=== PATIENT | male | born 1990 | race Caucasian/White ===

== ENCOUNTER 2016-11-25 22:40 | Inpatient (IN) | payer BC ==
[2016-11-25] MEDS ORDERED: HYDROmorphone 2 MG/ML SDV IVPUSH ONE (23:07)
[2016-11-25] MEDS ORDERED: Ondansetron 4 MG Tab.DIS PO ONE (23:08)
--- NOTE | 2016-11-25 23:14 | EDM.PDOC ---
ED HPI GENERAL MEDICAL PROBLEM - General Chief Complaint: Abdominal Pain Stated Complaint: ABD PAIN Time Seen by Provider: 11/25/16 22:55 Source of Information: Reports: Patient History Limitations: Reports: No Limitations - History of Present Illness INITIAL COMMENTS - FREE TEXT/NARRATIVE: 26 yo male awoke today with mild RLQ abdominal pain that has progressed as the day has elapsed. No fever. BM's normal. No hx of abdominal surgeries. No urinary sx's. Pain not changed a lot by eating. No hx of the same. Has nausea now tonight, no vomiting yet. Movement, coughing, or pressing on the area increases his pain. Drove himself to the ER [email or web address]. Has no local doctor, is a student at the [email or web address]. Onset: Today Onset Date: 11/25/16 Onset Time: 05:00 Duration: Hour(s):, Getting Worse Location: Reports: Abdomen Quality: Reports: Ache Severity: Severe Improves with: Reports: None Worsens with: Reports: Other (time, pressing on area. ) Context: Reports: Other (unknown) Associated Symptoms: Reports: Nausea/Vomiting (no vomiting ). Denies: Fever/ Chills Treatments SUBACUTE NURSE: Reports: Other (see below) (none) - Related Data Allergies Allergy/AdvReac Type Severity Reaction Status Date / Time No Known Allergies Allergy Verified 11/25/16 22:56 Home Meds: Home Meds FLUoxetine HCl [Prozac] 40 mg PO DAILY 11/25/16 [History] ED ROS GENERAL - Review of Systems Review Of Systems: See Below Constitutional: Reports: No Symptoms, Decreased Appetite (decreased since supper time only.). Denies: Fever, Chills, Weight Loss HEENT: Reports: No Symptoms Respiratory: Reports: No Symptoms Cardiovascular: Reports: No Symptoms GI/Abdominal: Reports: Abdominal Pain, Decreased Appetite, Nausea. Denies: Black Stool, Bloody Stool, Constipation, Diarrhea, Difficulty Swallowing, Distension, Flatus, Hematemesis, Hematochezia, Mucous in Stool, Stool Incontinence, Vomiting : Reports: Frequency (voiding slightly more often than normal. ) Musculoskeletal: Reports: No Symptoms Skin: Reports: No Symptoms Neurological: Reports: No Symptoms Psychiatric: Reports: No Symptoms ED EXAM, GI/ABD - Physical Exam Exam: See Below Exam Limited By: No Limitations General Appearance: Alert, WD/WN, No Apparent Distress, Obese Eyes: Bilateral: Normal Appearance Ears: Normal External Exam, Normal Canal, Hearing Grossly Normal Nose: Normal Inspection, Normal Mucosa, No Blood Throat/Mouth: Normal Inspection, Normal Lips, Normal Oropharynx, Normal Voice, No Airway Compromise Head: Atraumatic, Normocephalic Neck: Normal Inspection, Supple Respiratory/Chest: No Respiratory Distress, Lungs Clear, Normal Breath Sounds, No Accessory Muscle Use Cardiovascular: Regular Rate, Rhythm, No Edema GI/Abdominal Exam: Normal Bowel Sounds, No Distention, Guarding, Rebound, Tender (RUQ and RLQ's). No: Distended, Rigid Back Exam: Normal Inspection. No: CVA Tenderness (R), CVA Tenderness (L) Extremities: Normal Inspection, Normal Range of Motion, Non-Tender, No Pedal Edema Neurological: Alert, Oriented, CN II-XII Intact, Normal Cognition, No Motor/ Sensory Deficits Psychiatric: Normal Affect, Normal Mood Skin Exam: Warm, Dry, Intact, Normal Color, No Rash Lymphatic: No Adenopathy Course - Vital Signs Last Recorded V/S: Last Vital Signs Temp 36.6 C 11/25/16 22:40 Pulse 55 L 11/26/16 00:24 Resp 18 11/26/16 00:24 BP 133/68 11/26/16 00:24 Pulse Ox 99 11/25/16 22:40 - Orders/Labs/Meds Orders: Active Orders 24 hr Category Date Time Status Abdomen Pelvis w Cont [CT] Stat Exams 11/26/16 00:21 Taken HYDROmorphone [Dilaudid] Med 11/26/16 01:32 Once 0.5 mg IVPUSH ONETIME ONE Iopamidol [Isovue-370 (76%)] Med 11/26/16 01:00 Active 100 ml IV . DIRECTED Lactated Ringers [Ringers, Lactated] 1,000 ml Med 11/26/16 00:30 Active IV ASDIRECTED Sodium Chloride 0.9% [Saline Flush] Med 11/25/16 23:07 Active 10 ml FLUSH ASDIRECTED PRN Saline Lock Insert [OM.PC] Routine Oth 11/25/16 23:07 Ordered Medication Orders Lactated Ringer's (Ringers, Lactated) 1,000 mls @ 250 mls/hr IV ASDIRECTED [facility] Last Admin: 11/26/16 00:38 Dose: 250 mls/hr Iopamidol (Isovue-370 (76%)) 100 ml IV . DIRECTED NIGHAT Last Admin: 11/26/16 01:01 Dose: 100 ml Sodium Chloride (Saline Flush) 10 ml FLUSH ASDIRECTED PRN PRN Reason: Keep Vein Open Last Admin: 11/26/16 00:38 Dose: 10 ml Admin: 11/25/16 23:23 Dose: 10 ml Labs: Laboratory Tests 11/25/16 11/25/16 11/25/16 Range/Units 23:15 23:15 23:15 WBC 18.0 H (4.5-12.0) X10-3/uL RBC 5.34 (4.30-5.75) x10(6)uL Hgb 15.3 (11.5-15.5) g/dL Hct 44.8 (30.0-51.3) % MCV 83.8 (80-96) fL MCH 28.6 (27.7-33.6) pg MCHC 34.1 (32.2-35.4) g/dL RDW 11.8 (11.5-15.5) % Plt Count 197 (125-369) X10(3)uL Sodium 137 (135-145) mmol/L Potassium 4.0 (3.5-5.3) mmol/L Chloride 106 (100-110) mmol/L Carbon Dioxide 24 (23-29) mmol/L BUN 13 (5-20) mg/dL Creatinine 0.8 (0.6-1.3) mg/dL Est Cr Clr Drug Dosing 177.89 mL/min Estimated GFR (MDRD) > 60 (>60) BUN/Creatinine Ratio 16.3 (9-20) Glucose 100 (80-116) mg/dL Calcium 9.4 (8.6-10.2) mg/dL Total Bilirubin 0.4 (0.1-1.3) mg/dL AST 21 (5-27) IU/L ALT 20 (14-26) IU/L Alkaline Phosphatase 84 (56-112) IU/L C-Reactive Protein < 0.5 (0.0-1.0) mg/dL Total Protein 7.5 (6.0-8.0) g/dL Albumin 4.2 (3.5-5.2) g/dL Globulin 3.3 g/dL Albumin/Globulin Ratio 1.3 Urine Color (YELLOW) Urine Appearance (CLEAR) Urine pH (5.0-6.5) Ur Specific [place] (1.010-1.025) Urine Protein (NEGATIVE) mg/dL Urine Glucose (UA) (NEGATIVE) mg/dL Urine Ketones (NEGATIVE) mg/dL Urine Occult Blood (NEGATIVE) Urine Nitrite (NEGATIVE) Urine Bilirubin (NEGATIVE) Urine Urobilinogen (NEGATIVE) mg/dL Ur Leukocyte Esterase (NEGATIVE) Urine RBC (0) Urine WBC (0) Ur Squamous Epith Cells (NS,R,O) Urine Bacteria (NS) 11/26/16 Range/Units 00:05 WBC (4.5-12.0) X10-3/uL RBC (4.30-5.75) x10(6)uL Hgb (11.5-15.5) g/dL Hct (30.0-51.3) % MCV (80-96) fL MCH (27.7-33.6) pg MCHC (32.2-35.4) g/dL RDW (11.5-15.5) % Plt Count (125-369) X10(3)uL Sodium (135-145) mmol/L Potassium (3.5-5.3) mmol/L Chloride (100-110) mmol/L Carbon Dioxide (23-29) mmol/L BUN (5-20) mg/dL Creatinine (0.6-1.3) mg/dL Est Cr Clr Drug Dosing mL/min Estimated GFR (MDRD) (>60) BUN/Creatinine Ratio (9-20) Glucose (80-116) mg/dL Calcium (8.6-10.2) mg/dL Total Bilirubin (0.1-1.3) mg/dL AST (5-27) IU/L ALT (14-26) IU/L Alkaline Phosphatase (56-112) IU/L C-Reactive Protein (0.0-1.0) mg/dL Total Protein (6.0-8.0) g/dL Albumin (3.5-5.2) g/dL Globulin g/dL Albumin/Globulin Ratio Urine Color Yellow (YELLOW) Urine Appearance Clear (CLEAR) Urine pH 5.0 (5.0-6.5) Ur Specific [place] 1.015 (1.010-1.025) Urine Protein Negative (NEGATIVE) mg/dL Urine Glucose (UA) Normal (NEGATIVE) mg/dL Urine Ketones Negative (NEGATIVE) mg/dL Urine Occult Blood Negative (NEGATIVE) Urine Nitrite Negative (NEGATIVE) Urine Bilirubin Negative (NEGATIVE) Urine Urobilinogen Normal (NEGATIVE) mg/dL Ur Leukocyte Esterase Negative (NEGATIVE) Urine RBC 0-5 (0) Urine WBC 0-5 (0) Ur Squamous Epith Cells Occasional (NS,R,O) Urine Bacteria Rare H (NS) Meds: Medications Generic Name Dose Route Start Last Admin Trade Name Freq PRN Reason Stop Dose Admin Lactated Ringer's 1,000 mls @ 250 mls/hr 11/26/16 00:30 11/26/16 00:38 Ringers, Lactated IV 250 mls/hr ASDIRECTED NIGHAT Administration Iopamidol 100 ml 11/26/16 01:00 11/26/16 01:01 Isovue-370 (76%) IV 100 ml . DIRECTED NIGHAT Administration Sodium Chloride 10 ml 11/25/16 23:07 11/26/16 00:38 Saline Flush FLUSH 10 ml ASDIRECTED PRN Administration Keep Vein Open Discontinued Medications Generic Name Dose Route Start Last Admin Trade Name Freq PRN Reason Stop Dose Admin Hydromorphone HCl 0.5 mg 11/25/16 23:07 11/25/16 23:16 Dilaudid IVPUSH 11/25/16 23:08 0.5 mg ONETIME ONE Administration Hydromorphone HCl 0.5 mg 11/26/16 00:20 11/26/16 00:36 Dilaudid IVPUSH 11/26/16 00:21 0.5 mg ONETIME ONE Administration Ondansetron HCl 4 mg 11/25/16 23:08 11/25/16 23:16 Zofran Odt PO 11/25/16 23:09 4 mg ONETIME ONE Administration Departure - Departure Time of Disposition: 01:35 Disposition: Admitted As Inpatient 67 Condition: Fair Clinical Impression: Acute appendicitis Qualifiers: Acute appendicitis type: with localized peritonitis Qualified Code(s): K35.3 - Acute appendicitis with localized peritonitis - Discharge Information Forms: ED Department Discharge - My Orders Last 24 Hours: My Active Orders 11/25/16 23:07 Sodium Chloride 0.9% [Saline Flush] 10 ml FLUSH ASDIRECTED PRN Saline Lock Insert [OM.PC] Routine 11/26/16 00:21 Abdomen Pelvis w Cont [CT] Stat 11/26/16 00:30 Lactated Ringers [Ringers, Lactated] 1,000 ml IV ASDIRECTED 11/26/16 01:00 Iopamidol [Isovue-370 (76%)] 100 ml IV . DIRECTED 11/26/16 01:32 HYDROmorphone [Dilaudid] 0.5 mg IVPUSH ONETIME ONE - Assessment/Plan Last 24 Hours: My Active Orders 11/25/16 23:07 Sodium Chloride 0.9% [Saline Flush] 10 ml FLUSH ASDIRECTED PRN Saline Lock Insert [OM.PC] Routine 11/26/16 00:21 Abdomen Pelvis w Cont [CT] Stat 11/26/16 00:30 Lactated Ringers [Ringers, Lactated] 1,000 ml IV ASDIRECTED 11/26/16 01:00 Iopamidol [Isovue-370 (76%)] 100 ml IV . DIRECTED 11/26/16 01:32 HYDROmorphone [Dilaudid] 0.5 mg IVPUSH ONETIME ONE
[2016-11-25] MEDS: Sodium Chloride 0.9% 10 ML Syringe FLUSH PRN (23:23)
[2016-11-26] MEDS ORDERED: HYDROmorphone 2 MG/ML SDV IVPUSH ONE ×2 (00:20→01:32)
[2016-11-26] MEDS ORDERED: Lactated Ringers 1,000 ML IV SCH ×2 (00:30→01:45)
[2016-11-26] MEDS: Sodium Chloride 0.9% 10 ML Syringe FLUSH PRN (00:38)
[2016-11-26] MEDS ORDERED: Iopamidol 755 Mg/ML 100 ML Bottle IV SCH (01:00)
[2016-11-26] MEDS ORDERED: Ondansetron 4 MG/2 ML SDV IV PRN (01:38)
[2016-11-26] MEDS ORDERED: cefOXitin 1 GM in Premix Bag 1 BAG IV ONE ×4 (02:00)
[2016-11-26] MEDS: HYDROmorphone 2 MG/ML SDV IVPUSH PRN ×4 (03:49→13:47)
--- NOTE | 2016-11-26 06:58 | PCM.HP ---
H&P History of Present Illness - General Date of Service: 11/26/16 Admit Problem/Dx: Admission Diagnosis/Problem Admission Diagnosis/Problem Acute appendicitis Source of Information: Patient - History of Present Illness Initial Comments - Free Text/Narative: Pt developed abd pain around the belly button. This started early in the am. It got progressively worse as the day progressed. Then settled in the rlq. +/- on the anorexia. Last meal was at 1600 hrs yesterday. On tucker in the ED, elevated wbc, acute appendicitis on CT scan. Only med hx is depression. Right Lower Abdomen Pain Score (Numeric/FACES): 5 - Related Data Allergies/Adverse Reactions: Allergies Allergy/AdvReac Type Severity Reaction Status Date / Time No Known Allergies Allergy Verified 11/25/16 22:56 Home Medications: Home Meds FLUoxetine HCl [Prozac] 40 mg PO DAILY 11/25/16 [History] Past Medical History Psychiatric History: Reports: Depression - Past Surgical History Musculoskeletal Surgical History: Reports: Ganglion Cyst Social & Family History - Family History Family Medical History: Noncontributory - Tobacco Use Smoking Status *Q: Former Smoker Years of Tobacco use: 1 Used Tobacco, but Quit: Yes Month Tobacco Last Used: December Second Hand Smoke Exposure: No - Caffeine Use Caffeine Use: Reports: None - Recreational Drug Use Recreational Drug Use: Yes Recreational Drug Type: Reports: Marijuana/Hashish Recreational Drug Use Frequency: Rarely H&P Review of Systems - Review of Systems: Review Of Systems: See Below General: Reports: Decreased Appetite HEENT: Reports: Ear Pain Pulmonary: Reports: No Symptoms Cardiovascular: Reports: No Symptoms Gastrointestinal: Reports: Abdominal Pain, Anorexia Genitourinary: Reports: Other Musculoskeletal: Reports: No Symptoms Skin: Reports: No Symptoms Psychiatric: Reports: No Symptoms Neurological: Reports: No Symptoms Exam - Exam Exam: See Below - Vital Signs Vital Signs: Last Vital Signs Temp 37.1 C 11/26/16 01:40 Pulse 60 11/26/16 01:40 Resp 18 11/26/16 01:40 BP 135/67 11/26/16 01:40 Pulse Ox 98 11/26/16 01:40 Weight: 140.84 kg - Exam General: Alert, Oriented, Cooperative HEENT: Hearing Intact Lungs: Clear to Auscultation, Normal Respiratory Effort Cardiovascular: Regular Rate, Regular Rhythm GI/Abdominal Exam: Normal Bowel Sounds, Soft, Tender Rectal (Males) Exam: Deferred Extremities: Normal Inspection Neuro Extensive - Mental Status: Alert, Normal Mood/Affect, Normal Cognition - Patient Data Result Diagrams: 11/25/16 23:15 11/25/16 23:15 *Q Meaningful Use (ADM) - VTE *Q VTE Criteria *Q: - Stroke *Q Stroke Criteria *Q: - AMI *Q AMI Criteria *Q: - Problem List (1) Acute appendicitis SNOMED Code(s): 85132598 ICD Code: K35.80 - UNSPECIFIED ACUTE APPENDICITIS Status: Acute Current Visit: Yes Qualifiers: Acute appendicitis type: with localized peritonitis Qualified Code(s): K35.3 - Acute appendicitis with localized peritonitis Problem List Initiated/Reviewed/Updated: Yes Orders Last 24hrs: Active Orders 24 hr Category Date Time Status Patient to Empty Bladder [RC] ASDIRECTED Care 11/26/16 06:50 Ordered Vaccines to be Administered [RC] PER UNIT ROUTINE Care 11/26/16 02:36 Active Verify Patient Consent Obtain [RC] ASDIRECTED Care 11/26/16 06:50 Ordered Diphth,Pertuss(Acell),Tet Vac [Adacel] Med 11/26/16 09:00 Once 0.5 ml IM .ONCE ONE cefOXitin [Mefoxin] 2 gm Med 11/26/16 10:00 Active Sodium Chloride 0.9% [Normal Saline] 100 ml IV Q8H Sequential Compression Device [OM.PC] Routine Oth 11/26/16 06:50 Ordered Medication Orders Diphtheria/Tetanus/Acell Pertussis (Adacel) 0.5 ml IM .ONCE ONE Stop: 11/26/16 09:01 Hydromorphone HCl (Dilaudid) 0.5 mg IVPUSH Q2H PRN PRN Reason: Pain (severe 7-10) Last Admin: 11/26/16 05:54 Dose: 0.5 mg Admin: 11/26/16 03:49 Dose: 0.5 mg Lactated Ringer's (Ringers, Lactated) 1,000 mls @ 250 mls/hr IV ASDIRECTED [facility] Last Admin: 11/26/16 00:38 Dose: 250 mls/hr Lactated Ringer's (Ringers, Lactated) 1,000 mls @ 125 mls/hr IV ASDIRECTED [facility] Last Admin: 11/26/16 06:00 Dose: 125 mls/hr Cefoxitin Sodium 2 gm/ Sodium (Chloride) 100 mls @ 200 mls/hr IV Q8H NIGHAT Iopamidol (Isovue-370 (76%)) 100 ml IV . DIRECTED NIGHAT Last Admin: 11/26/16 01:01 Dose: 100 ml Ondansetron HCl (Zofran) 4 mg IV Q6H PRN PRN Reason: Nausea/Vomiting Last Admin: 11/26/16 06:01 Dose: 4 mg Sodium Chloride (Saline Flush) 10 ml FLUSH ASDIRECTED PRN PRN Reason: Keep Vein Open Last Admin: 11/26/16 00:38 Dose: 10 ml Admin: 11/25/16 23:23 Dose: 10 ml Assessment/Plan Comment:: lap appendectomy. the procedure and risks were explained to the pt to include bleeding, infection , injury to bowel, bladder and blood vessel as well as the need to open. expressed understanding and asks us to proceed.
[2016-11-26] MEDS ORDERED: Rocuronium 50 MG/5 ML Vial IV ONE (08:00)
[2016-11-26] MEDS ORDERED: Dexamethasone 4 MG/ML 5 ML MDV IVPUSH ONE (08:00)
[2016-11-26] MEDS ORDERED: ePHEDrine 50 MG/ML SDV IV ONE (08:00)
[2016-11-26] MEDS ORDERED: Lactated Ringers 1,000 ML IV ONE (08:00)
[2016-11-26] MEDS ORDERED: diphenhydrAMINE 50 MG/ML SDV IV ONE (08:00)
[2016-11-26] MEDS ORDERED: Midazolam 1 MG/ML 2 ML SDV IV ONE (08:00)
[2016-11-26] MEDS ORDERED: cefOXitin 1 GM Vial IV ONE (08:00)
[2016-11-26] MEDS ORDERED: Ketorolac 30 MG/ML SDV IVPUSH ONE (08:00)
[2016-11-26] MEDS ORDERED: Propofol 200 MG/20 ML SDV IV ONE (08:00)
[2016-11-26] MEDS ORDERED: fentaNYL 100 MCG/2 ML SDV IV ONE (08:00)
[2016-11-26] MEDS ORDERED: Succinylcholine 200 MG/10 ML MDV IV ONE (08:00)
[2016-11-26] MEDS ORDERED: Ondansetron 4 MG/2 ML SDV IVPUSH ONE (08:00)
[2016-11-26] MEDS ORDERED: Bupivacaine 0.5% 30 ML SDV ONE (08:30)
[2016-11-26] MEDS ORDERED: Lidocaine 1% with EPINEPHrine 1:100,000 20 ML MDV ONE (08:30)
--- NOTE | 2016-11-26 08:57 | PCM.OPNOTE ---
- General Post-Op/Procedure Note Date of Surgery/Procedure: 11/26/16 Operative Procedure(s): lap appendectomy Findings: acute appendicitis Pre Op Diagnosis: acute appendicitis Post-Op Diagnosis: Same Anesthesia Technique: General ET Tube, Local (9 ml 1 % lido with epi/0.5% buvipicaine) Primary Surgeon: You Piper Anesthesia Provider: Brittani Renteria Pathology: appendix EBL in mLs: 1 Complications: None Condition: Stable Free Text/Narrative:: Intake & Output 11/25/16 11/26/16 11/26/16 22:59 06:59 14:59 Intake Total 1138 Balance 1138 see dictation
[2016-11-26] MEDS ORDERED: Diphtheria,Pertussis(Acell),Tetanus Vaccine 0.5 ML SDV IM ONE (09:00)
[2016-11-26] MEDS ORDERED: cefOXitin 2 GM in Sodium Chloride 0.9% 100 ML IV SCH ×4 (10:00→14:00)
[2016-11-26] MEDS: Lactated Ringers 1,000 ML IV SCH ×2 (10:03→17:46)
--- NOTE | 2016-11-26 10:26 | OR ---
DATE OF OPERATION: 11/26/2016 SURGEON: You Piper MD PROCEDURE PERFORMED: Laparoscopic appendectomy. PREOPERATIVE DIAGNOSIS: Acute appendicitis. POSTOPERATIVE DIAGNOSIS: Acute appendicitis. INDICATIONS FOR PROCEDURE: This is a 26-year-old white male, who presented with approximately an 18-hour history of abdominal pain that got progressively worse and was located in the right lower quadrant. Workup in the emergency department revealed a right lower quadrant tenderness, leukocytosis, as well as a CT scan findings consistent with acute appendicitis. He was offered and accepted a laparoscopic appendectomy. INTRAOPERATIVE FINDINGS: The suppurative appendix was removed. Approximately 10 mL of a 1:1 mixture of 1% lidocaine with epinephrine 0.5% bupivacaine was used to infiltrate our trocar sites. DESCRIPTION OF PROCEDURE: After an excellent IV general anesthetic was administered, the patient was prepped and draped in usual sterile manner. Local was used to infuse the area, just below the umbilicus. An incision was made with a #10 scalpel blade. The subcu fat was divided using electrocautery. Two stay sutures of 0 Vicryl were placed on either side of the midline fascia, which was then elevated and incised. A 10.5 mm Lucila trocar was then inserted into the patient's preperitoneal space. The patient's abdomen was insufflated to 15 mmHg using carbon dioxide. Two 5 mm ports were placed, one in the right lower quadrant and one just below the midline umbilical site by infiltrating with local making a stab incision and inserting the trocars. A suppurative appendix was easily identified. A rent was made in the mesoappendix, the base of the appendix was transected with a 3.5 mm Endo-ARTHUR, and the mesoappendix was divided using the Endo-ARTHUR as well. Specimen was passed into the bag and pneumoperitoneum was released after removing our trocars, which were checked for bleeding. The fascial defect was closed with a [id number] 0 Vicryl. Tyrese were used to close the skin. Dressing was applied. Needle, sponge, and instrument counts were reported as correct. The patient was taken to recovery room in good condition having tolerated procedure well. /[id number] /MODL
[2016-11-26] MEDS ORDERED: diphenhydrAMINE 50 MG/ML SDV IVPUSH PRN (14:42)
[2016-11-26] MEDS: Morphine 2 MG/ML Syringe IVPUSH PRN ×2 (15:37→17:48)
[2016-11-26] MEDS: Ketorolac 30 MG/ML SDV IVPUSH PRN (16:40)
[2016-11-26] MEDS: cefOXitin 2 GM in Sodium Chloride 0.9% 100 ML IV SCH (20:16)
[2016-11-26] MEDS: Acetaminophen/HYDROcodone 325-5 MG Tab PO PRN (20:17)
[2016-11-27] MEDS: Acetaminophen/HYDROcodone 325-5 MG Tab PO PRN ×4 (00:53→20:35)
[2016-11-27] MEDS: Lactated Ringers 1,000 ML IV SCH (00:55)
[2016-11-27] MEDS: cefOXitin 2 GM in Sodium Chloride 0.9% 100 ML IV SCH ×4 (01:00→19:33)
[2016-11-27] MEDS: Ketorolac 30 MG/ML SDV IVPUSH PRN ×3 (02:35→19:36)
[2016-11-27] MEDS: FLUoxetine 20 MG Cap PO SCH (09:30)
--- NOTE | 2016-11-27 10:14 | PCM.SURGPN ---
- General Info Date of Service: 11/27/16 POD#: 1 Functional Status: Reports: Pain Controlled, Tolerating Diet - Review of Systems Pulmonary: Reports: No Symptoms Cardiovascular: Reports: No Symptoms Gastrointestinal: Reports: Abdominal Pain - Patient Data Vitals - Most Recent: Last Vital Signs Temp 36.8 C 11/27/16 02:37 Pulse 56 L 11/27/16 02:37 Resp 18 11/27/16 02:37 BP 116/47 L 11/27/16 02:37 Pulse Ox 98 11/27/16 02:37 Weight - Most Recent: 140.84 kg I&O - Last 24 Hours: Intake & Output 11/26/16 11/27/16 11/27/16 22:59 06:59 14:59 Intake Total 1911 480 100 Output Total 1000 1200 Balance 911 -720 100 Lab Results Last 24 Hrs: Laboratory Results - last 24 hr 11/27/16 Range/Units 06:18 WBC 14.4 H (4.5-12.0) X10-3/uL RBC 4.32 (4.30-5.75) x10(6)uL Hgb 12.8 (11.5-15.5) g/dL Hct 36.7 (30.0-51.3) % MCV 85.0 (80-96) fL MCH 29.5 (27.7-33.6) pg MCHC 34.8 (32.2-35.4) g/dL RDW 11.9 (11.5-15.5) % Plt Count 144 (125-369) X10(3)uL MPV 9.9 (7.4-10.4) fL Neut % (Auto) 76.8 (46-82) % Lymph % (Auto) 13.2 (13-37) % Coffey % (Auto) 9.7 (4-12) % Eos % (Auto) 0 L (1.0-5.0) % Baso % (Auto) 0 (0-2) % Neut # (Auto) 11.1 H (1.6-8.3) # Lymph # (Auto) 1.9 (0.6-5.0) # Coffey # (Auto) 1.4 H (0.0-1.3) # Eos # (Auto) 0.0 (0.0-0.8) # Baso # (Auto) 0.0 (0.0-0.2) # Med Orders - Current: Current Medications Hydrocodone Bitart/Acetaminophen ([place] 325-5 Mg) 2 tab PO Q4H PRN PRN Reason: Pain Last Admin: 11/27/16 00:53 Dose: 2 tab Diphenhydramine HCl (Benadryl) 25 mg IVPUSH Q8H PRN PRN Reason: Itching Last Admin: 11/26/16 16:41 Dose: 25 mg Fluoxetine HCl (Prozac) 40 mg PO DAILY [facility] Last Admin: 11/27/16 09:30 Dose: 40 mg Lactated Ringer's (Ringers, Lactated) 1,000 mls @ 150 mls/hr IV ASDIRECTED [facility] Last Admin: 11/27/16 00:55 Dose: 150 mls/hr Cefoxitin Sodium 2 gm/ Sodium (Chloride) 100 mls @ 200 mls/hr IV Q6H [facility] Last Admin: 11/27/16 09:27 Dose: 200 mls/hr Ketorolac Tromethamine (Toradol) 30 mg IVPUSH Q8H PRN PRN Reason: Pain Stop: 12/01/16 16:32 Last Admin: 11/27/16 02:35 Dose: 30 mg Morphine Sulfate (Morphine) 2 mg IVPUSH Q1H PRN PRN Reason: Pain Last Admin: 11/26/16 17:48 Dose: 2 mg Ondansetron HCl (Zofran) 4 mg IV Q6H PRN PRN Reason: Nausea/Vomiting Last Admin: 11/26/16 06:01 Dose: 4 mg Sodium Chloride (Saline Flush) 10 ml FLUSH ASDIRECTED PRN PRN Reason: Keep Vein Open Last Admin: 11/26/16 00:38 Dose: 10 ml Discontinued Medications Bupivacaine HCl (Marcaine 0.5%) 10 ml .XX .STK-MED ONE Stop: 11/26/16 08:31 Last Admin: 11/26/16 08:30 Dose: 10 ml Diphtheria/Tetanus/Acell Pertussis (Adacel) 0.5 ml IM .ONCE ONE Stop: 11/26/16 09:01 Hydromorphone HCl (Dilaudid) 0.5 mg IVPUSH ONETIME ONE Stop: 11/25/16 23:08 Last Admin: 11/25/16 23:16 Dose: 0.5 mg Hydromorphone HCl (Dilaudid) 0.5 mg IVPUSH ONETIME ONE Stop: 11/26/16 00:21 Last Admin: 11/26/16 00:36 Dose: 0.5 mg Hydromorphone HCl (Dilaudid) 0.5 mg IVPUSH ONETIME ONE Stop: 11/26/16 01:33 Last Admin: 11/26/16 01:43 Dose: 0.5 mg Hydromorphone HCl (Dilaudid) 0.5 mg IVPUSH Q2H PRN PRN Reason: Pain (severe 7-10) Last Admin: 11/26/16 05:54 Dose: 0.5 mg Hydromorphone HCl (Dilaudid) 2 mg IVPUSH Q1H PRN PRN Reason: Pain (severe 7-10) Last Admin: 11/26/16 13:47 Dose: 2 mg Lactated Ringer's (Ringers, Lactated) 1,000 mls @ 250 mls/hr IV ASDIRECTED [facility] Last Admin: 11/26/16 00:38 Dose: 250 mls/hr Lactated Ringer's (Ringers, Lactated) 1,000 mls @ 125 mls/hr IV ASDIRECTED [facility] Last Admin: 11/26/16 06:00 Dose: 125 mls/hr Cefoxitin Sodium 1 gm/ Premix 50 mls @ 100 mls/hr IV ONETIME ONE Stop: 11/26/16 02:29 Last Admin: 11/26/16 02:45 Dose: 100 mls/hr Cefoxitin Sodium 1 gm/ Premix 50 mls @ 100 mls/hr IV ONETIME ONE Stop: 11/26/16 02:29 Last Admin: 11/26/16 02:45 Dose: 100 mls/hr Cefoxitin Sodium 2 gm/ Sodium (Chloride) 100 mls @ 200 mls/hr IV Q6H [facility] Cefoxitin Sodium 2 gm/ Sodium (Chloride) 100 mls @ 200 mls/hr IV Q6H [facility] Stop: 11/26/16 16:00 Last Admin: 11/26/16 14:24 Dose: 200 mls/hr Iopamidol (Isovue-370 (76%)) 100 ml IV . DIRECTED NIGHAT Last Admin: 11/26/16 01:01 Dose: 100 ml Lidocaine/Epinephrine (Xylocaine 1% With Epinephrine 1:100,000) 10 ml .XX .STK- MED ONE Stop: 11/26/16 08:31 Last Admin: 11/26/16 08:30 Dose: 10 ml Ondansetron HCl (Zofran Odt) 4 mg PO ONETIME ONE Stop: 11/25/16 23:09 Last Admin: 11/25/16 23:16 Dose: 4 mg - Exam Wound/Incisions: Dressing Dry and Intact Lungs: Clear to Auscultation, Normal Respiratory Effort Cardiovascular: Regular Rate, Regular Rhythm GI/Abdominal Exam: Normal Bowel Sounds, Soft, Non-Tender, No Organomegaly Skin: Warm, Dry, Intact - Problem List & Annotations (1) Acute appendicitis SNOMED Code(s): 99147082 Code(s): K35.80 - UNSPECIFIED ACUTE APPENDICITIS Status: Acute Current Visit: Yes Qualifiers: Acute appendicitis type: with localized peritonitis Qualified Code(s): K35.3 - Acute appendicitis with localized peritonitis - Problem List Review Problem List Initiated/Reviewed/Updated: Yes - My Orders Last 24 Hours: Active Orders 24 hr Category Date Time Status Clear Liquid Diet [DIET] Diet 11/26/16 Dinner Active Acetaminophen/HYDROcodone [[place] 325-5 MG] Med 11/26/16 16:15 Active 2 tab PO Q4H PRN FLUoxetine [PROzac] Med 11/27/16 09:00 Active 40 mg PO DAILY Ketorolac [Toradol] Med 11/26/16 16:32 Active 30 mg IVPUSH Q8H PRN Morphine Med 11/26/16 14:42 Active 2 mg IVPUSH Q1H PRN cefOXitin [Mefoxin] 2 gm Med 11/26/16 20:00 Active Sodium Chloride 0.9% [Normal Saline] 100 ml IV Q6H diphenhydrAMINE [Benadryl] Med 11/26/16 14:42 Active 25 mg IVPUSH Q8H PRN Medication Orders Hydrocodone Bitart/Acetaminophen ([place] 325-5 Mg) 2 tab PO Q4H PRN PRN Reason: Pain Last Admin: 11/27/16 00:53 Dose: 2 tab Admin: 11/26/16 20:17 Dose: 2 tab Diphenhydramine HCl (Benadryl) 25 mg IVPUSH Q8H PRN PRN Reason: Itching Last Admin: 11/26/16 16:41 Dose: 25 mg Fluoxetine HCl (Prozac) 40 mg PO DAILY [facility] Last Admin: 11/27/16 09:30 Dose: 40 mg Lactated Ringer's (Ringers, Lactated) 1,000 mls @ 150 mls/hr IV ASDIRECTED [facility] Last Admin: 11/27/16 00:55 Dose: 150 mls/hr Infusion: 11/27/16 00:27 Dose: 150 mls/hr Admin: 11/26/16 17:46 Dose: 150 mls/hr Infusion: 11/26/16 16:44 Dose: 150 mls/hr Admin: 11/26/16 10:03 Dose: 150 mls/hr Cefoxitin Sodium 2 gm/ Sodium (Chloride) 100 mls @ 200 mls/hr IV Q6H [facility] Last Admin: 11/27/16 09:27 Dose: 200 mls/hr Admin: 11/27/16 01:00 Dose: 200 mls/hr Admin: 11/26/16 20:16 Dose: 200 mls/hr Ketorolac Tromethamine (Toradol) 30 mg IVPUSH Q8H PRN PRN Reason: Pain Stop: 12/01/16 16:32 Last Admin: 11/27/16 02:35 Dose: 30 mg Admin: 11/26/16 16:40 Dose: 30 mg Morphine Sulfate (Morphine) 2 mg IVPUSH Q1H PRN PRN Reason: Pain Last Admin: 11/26/16 17:48 Dose: 2 mg Admin: 11/26/16 15:37 Dose: 2 mg Ondansetron HCl (Zofran) 4 mg IV Q6H PRN PRN Reason: Nausea/Vomiting Last Admin: 11/26/16 06:01 Dose: 4 mg Sodium Chloride (Saline Flush) 10 ml FLUSH ASDIRECTED PRN PRN Reason: Keep Vein Open Last Admin: 11/26/16 00:38 Dose: 10 ml Admin: 11/25/16 23:23 Dose: 10 ml - Assessment Assessment (Free Text/Narrative):: unremarkable post op exam - Plan Plan (Free Text/Narrative):: continue antibiotics advance diet
[2016-11-27] MEDS: Sodium Chloride 0.9% 10 ML Syringe FLUSH PRN ×3 (11:36→19:30)
[2016-11-27] MEDS ORDERED: Sodium Chloride 0.9% 250 ML IV SCH (15:10)
[2016-11-28] MEDS: cefOXitin 2 GM in Sodium Chloride 0.9% 100 ML IV SCH ×2 (02:28→10:16)
[2016-11-28] MEDS: Acetaminophen/HYDROcodone 325-5 MG Tab PO PRN ×2 (03:57→08:38)
[2016-11-28 08:08] VITALS: BP 122/69
[2016-11-28] MEDS: FLUoxetine 20 MG Cap PO SCH (08:39)
[2016-11-28] MEDS ORDERED: Bisacodyl 10 MG Supp RECTAL ONE (10:53)
--- NOTE | 2016-11-28 10:55 | PCM.SURGPN ---
- General Info Date of Service: 11/28/16 - Review of Systems Pulmonary: Reports: No Symptoms Cardiovascular: Reports: No Symptoms Gastrointestinal: Reports: No Symptoms - Patient Data Vitals - Most Recent: Last Vital Signs Temp 36.3 C 11/28/16 08:00 Pulse 54 L 11/28/16 05:45 Resp 18 11/28/16 08:00 BP 122/69 11/28/16 08:00 Pulse Ox 96 11/28/16 08:00 Weight - Most Recent: 144.197 kg I&O - Last 24 Hours: Intake & Output 11/27/16 11/28/16 11/28/16 22:59 06:59 14:59 Intake Total 910 236 Output Total 650 400 300 Balance 260 -164 -300 Lab Results Last 24 Hrs: Laboratory Results - last 24 hr 11/28/16 Range/Units 06:25 WBC 6.7 (4.5-12.0) X10-3/uL RBC 4.27 L (4.30-5.75) x10(6)uL Hgb 12.2 (11.5-15.5) g/dL Hct 36.4 (30.0-51.3) % MCV 85.2 (80-96) fL MCH 28.5 (27.7-33.6) pg MCHC 33.4 (32.2-35.4) g/dL RDW 11.8 (11.5-15.5) % Plt Count 125 (125-369) X10(3)uL MPV 9.9 (7.4-10.4) fL Neut % (Auto) 50.6 (46-82) % Lymph % (Auto) 37.8 H (13-37) % [place] % (Auto) 10.2 (4-12) % Eos % (Auto) 1 (1.0-5.0) % Baso % (Auto) 0 (0-2) % Neut # (Auto) 3.4 (1.6-8.3) # Lymph # (Auto) 2.5 (0.6-5.0) # [place] # (Auto) 0.7 (0.0-1.3) # Eos # (Auto) 0.1 (0.0-0.8) # Baso # (Auto) 0.0 (0.0-0.2) # Med Orders - Current: Current Medications Hydrocodone Bitart/Acetaminophen ([place] 325-5 Mg) 2 tab PO Q4H PRN PRN Reason: Pain Last Admin: 11/28/16 08:38 Dose: 2 tab Bisacodyl (Dulcolax) 10 mg RECTAL ONETIME ONE Stop: 11/28/16 10:54 Diphenhydramine HCl (Benadryl) 25 mg IVPUSH Q8H PRN PRN Reason: Itching Last Admin: 11/26/16 16:41 Dose: 25 mg Fluoxetine HCl (Prozac) 40 mg PO DAILY NIGHAT Last Admin: 11/28/16 08:39 Dose: 40 mg Ketorolac Tromethamine (Toradol) 30 mg IVPUSH Q8H PRN PRN Reason: Pain Stop: 12/01/16 16:32 Last Admin: 11/27/16 19:36 Dose: 30 mg Morphine Sulfate (Morphine) 2 mg IVPUSH Q1H PRN PRN Reason: Pain Last Admin: 11/26/16 17:48 Dose: 2 mg Ondansetron HCl (Zofran) 4 mg IV Q6H PRN PRN Reason: Nausea/Vomiting Last Admin: 11/26/16 06:01 Dose: 4 mg Discontinued Medications Bupivacaine HCl (Marcaine 0.5%) 10 ml .XX .STK-MED ONE Stop: 11/26/16 08:31 Last Admin: 11/26/16 08:30 Dose: 10 ml Diphtheria/Tetanus/Acell Pertussis (Adacel) 0.5 ml IM .ONCE ONE Stop: 11/26/16 09:01 Hydromorphone HCl (Dilaudid) 0.5 mg IVPUSH ONETIME ONE Stop: 11/25/16 23:08 Last Admin: 11/25/16 23:16 Dose: 0.5 mg Hydromorphone HCl (Dilaudid) 0.5 mg IVPUSH ONETIME ONE Stop: 11/26/16 00:21 Last Admin: 11/26/16 00:36 Dose: 0.5 mg Hydromorphone HCl (Dilaudid) 0.5 mg IVPUSH ONETIME ONE Stop: 11/26/16 01:33 Last Admin: 11/26/16 01:43 Dose: 0.5 mg Hydromorphone HCl (Dilaudid) 0.5 mg IVPUSH Q2H PRN PRN Reason: Pain (severe 7-10) Last Admin: 11/26/16 05:54 Dose: 0.5 mg Hydromorphone HCl (Dilaudid) 2 mg IVPUSH Q1H PRN PRN Reason: Pain (severe 7-10) Last Admin: 11/26/16 13:47 Dose: 2 mg Lactated Ringer's (Ringers, Lactated) 1,000 mls @ 250 mls/hr IV ASDIRECTED REPLACED BY [facility] Last Admin: 11/26/16 00:38 Dose: 250 mls/hr Lactated Ringer's (Ringers, Lactated) 1,000 mls @ 125 mls/hr IV ASDIRECTED REPLACED BY [facility] Last Admin: 11/26/16 06:00 Dose: 125 mls/hr Cefoxitin Sodium 1 gm/ Premix 50 mls @ 100 mls/hr IV ONETIME ONE Stop: 11/26/16 02:29 Last Admin: 11/26/16 02:45 Dose: 100 mls/hr Cefoxitin Sodium 1 gm/ Premix 50 mls @ 100 mls/hr IV ONETIME ONE Stop: 11/26/16 02:29 Last Admin: 11/26/16 02:45 Dose: 100 mls/hr Cefoxitin Sodium 2 gm/ Sodium (Chloride) 100 mls @ 200 mls/hr IV Q6H REPLACED BY [facility] Lactated Ringer's (Ringers, Lactated) 1,000 mls @ 150 mls/hr IV ASDIRECTED REPLACED BY [facility] Last Admin: 11/27/16 00:55 Dose: 150 mls/hr Cefoxitin Sodium 2 gm/ Sodium (Chloride) 100 mls @ 200 mls/hr IV Q6H REPLACED BY [facility] Stop: 11/26/16 16:00 Last Admin: 11/26/16 14:24 Dose: 200 mls/hr Cefoxitin Sodium 2 gm/ Sodium (Chloride) 100 mls @ 200 mls/hr IV Q6H REPLACED BY [facility] Stop: 11/27/16 16:00 Last Admin: 11/27/16 15:13 Dose: 200 mls/hr Sodium Chloride (Normal Saline) 250 mls @ 100 mls/hr IV ASDIRECTED REPLACED BY [facility] Last Admin: 11/27/16 15:13 Dose: 100 mls/hr Cefoxitin Sodium 2 gm/ Sodium (Chloride) 100 mls @ 200 mls/hr IV Q6H REPLACED BY [facility] Last Admin: 11/28/16 10:16 Dose: Not Given Iopamidol (Isovue-370 (76%)) 100 ml IV . DIRECTED REPLACED BY [facility] Last Admin: 11/26/16 01:01 Dose: 100 ml Lidocaine/Epinephrine (Xylocaine 1% With Epinephrine 1:100,000) 10 ml .XX .STK- MED ONE Stop: 11/26/16 08:31 Last Admin: 11/26/16 08:30 Dose: 10 ml Ondansetron HCl (Zofran Odt) 4 mg PO ONETIME ONE Stop: 11/25/16 23:09 Last Admin: 11/25/16 23:16 Dose: 4 mg Sodium Chloride (Saline Flush) 10 ml FLUSH ASDIRECTED PRN PRN Reason: Keep Vein Open Last Admin: 11/27/16 19:30 Dose: 10 ml - Exam Wound/Incisions: Healing Well Lungs: Clear to Auscultation, Normal Respiratory Effort Cardiovascular: Regular Rate, Regular Rhythm GI/Abdominal Exam: Normal Bowel Sounds, Soft - Problem List & Annotations (1) Acute appendicitis SNOMED Code(s): 66302631 Code(s): K35.80 - UNSPECIFIED ACUTE APPENDICITIS Status: Resolved Current Visit: Yes Qualifiers: Acute appendicitis type: with localized peritonitis Qualified Code(s): K35.3 - Acute appendicitis with localized peritonitis - Problem List Review Problem List Initiated/Reviewed/Updated: Yes - My Orders Last 24 Hours: Active Orders 24 hr Category Date Time Status Ready for Discharge [RC] PER UNIT ROUTINE Care 11/28/16 10:35 Active Regular Diet [DIET] Diet 11/27/16 Lunch Active Bisacodyl [Dulcolax] Med 11/28/16 10:53 Once 10 mg RECTAL ONETIME ONE Convert IV to Saline Lock [OM.PC] Routine Oth 11/27/16 10:15 Ordered Medication Orders Hydrocodone Bitart/Acetaminophen ([place] 325-5 Mg) 2 tab PO Q4H PRN PRN Reason: Pain Last Admin: 11/28/16 08:38 Dose: 2 tab Admin: 11/28/16 03:57 Dose: 2 tab Admin: 11/27/16 20:35 Dose: 2 tab Admin: 11/27/16 16:14 Dose: 2 tab Admin: 11/27/16 11:34 Dose: 2 tab Admin: 11/27/16 00:53 Dose: 2 tab Admin: 11/26/16 20:17 Dose: 2 tab Bisacodyl (Dulcolax) 10 mg RECTAL ONETIME ONE Stop: 11/28/16 10:54 Diphenhydramine HCl (Benadryl) 25 mg IVPUSH Q8H PRN PRN Reason: Itching Last Admin: 11/26/16 16:41 Dose: 25 mg Fluoxetine HCl (Prozac) 40 mg PO DAILY NIGHAT Last Admin: 11/28/16 08:39 Dose: 40 mg Admin: 11/27/16 09:30 Dose: 40 mg Ketorolac Tromethamine (Toradol) 30 mg IVPUSH Q8H PRN PRN Reason: Pain Stop: 12/01/16 16:32 Last Admin: 11/27/16 19:36 Dose: 30 mg Admin: 11/27/16 11:36 Dose: 30 mg Admin: 11/27/16 02:35 Dose: 30 mg Admin: 11/26/16 16:40 Dose: 30 mg Morphine Sulfate (Morphine) 2 mg IVPUSH Q1H PRN PRN Reason: Pain Last Admin: 11/26/16 17:48 Dose: 2 mg Admin: 11/26/16 15:37 Dose: 2 mg Ondansetron HCl (Zofran) 4 mg IV Q6H PRN PRN Reason: Nausea/Vomiting Last Admin: 11/26/16 06:01 Dose: 4 mg - Assessment Assessment (Free Text/Narrative):: ready for discharge
== END 2016-11-28 11:27 | disposition home or self-care (01) | DRG 225 ==
LOC: FB.ED 22:40 → FB.MS 11-26 01:38
PROVIDERS: ADMIT Emergency Medicine; ATTEND Surgery
PROC: 0DTJ4ZZ Resection of Appendix, Percutaneous Endoscopic Approach (ICD-10-PCS; principal; 2016-11-26)
DX: K35.80 Unspecified acute appendicitis (principal); F32.9 Major depressive disorder, single episode, unspecified
CPT/HCPCS: 36415; 74177; 80053; 81001; 85025; 85027; 86140; 88304; 94150; 96361; 96374; 96376; 99285; A9270-GY; J0330; J0694; J1100; J1170; J1200; J1885; J2250; J2270; J2405; J2704; J3010; J7030; J7050; J7120; Q9967